=== PATIENT | male | born 1990 | race Caucasian/White ===

== ENCOUNTER 2021-06-15 18:06 | Emergency (ER) | payer BC ==
[2021-06-15] MEDS ORDERED: Ondansetron 4 MG/2 ML SDV IVPUSH ONE (18:43)
[2021-06-15] MEDS ORDERED: HYDROmorphone 0.5 MG/0.5 ML Syringe IVPUSH ONE (18:44)
[2021-06-15] MEDS ORDERED: Dextrose 5%-Lactated Ringers 1,000 ML IV SCH (18:45)
[2021-06-15] MEDS ORDERED: Ketorolac 30 MG/ML SDV IVPUSH SCH (18:45)
--- NOTE | 2021-06-15 18:53 | EDM.PDOC ---
ED HPI GENERAL MEDICAL PROBLEM - General Chief Complaint: Exposure to Heat or Cold Stated Complaint: [facility] Time Seen by Provider: 06/15/21 18:42 Source of Information: Reports: Patient History Limitations: Reports: No Limitations - History of Present Illness INITIAL COMMENTS - FREE TEXT/NARRATIVE: 30-year-old male presents to the ED per [facility] ambulance from [place]. Patient was a participant in the marathon today. Ambient temperature is 86 to 90 degrees. He made 37 miles before his legs gave out. He states he has mild cramps in his calves. However he was unable to walk once he got off his bicycle. He estimates he has drank a gallon of fluids today which include some Gatorade. However he does not believe he has passed any urine sin ce 0630 hrs. this morning when he started the [place]. Paramedics administered 2 L of IV fluids in route to [place] from [employer]. He admits he is feeling better getting out of the sun and after receiving 2 L of fluid. Mild diffuse low back discomfort without severe cramping. Unable to dorsiflex his feet at this time due to cramping in his calves. No nausea or vomiting. Initially did have a mil d headache but this is now gone. Onset: Today, Gradual Onset Date: 06/15/21 Onset Time: 17:00 Duration: Hour(s):, Improving Location: Reports: Generalized Quality: Reports: Ache, Other Severity: Moderate (Cramping lower back in both calves.) Improves with: Reports: Rest Worsens with: Reports: Other Context: Reports: Other (Heat exhaustion from performing a bicycle [id number] [place] out in [place]. He made 37 miles). Denies: Activity (Find to walk or weight-bear), Exercise, Lifting, Sick Contact, Trauma Associated Symptoms: Reports: Headaches (Mild), Loss of Appetite, Malaise, Nausea/Vomiting, Weakness (Degrees lower extremities). 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) (Paramedics gave him 2 L of fluids intravenously in route to [place] from [employer]) - Related Data Allergies Allergy/AdvReac Type Severity Reaction Status Date / Time No Known Allergies Allergy Verified 06/15/21 18:09 Home Meds: Home Meds Cetirizine [ZyrTEC] 10 mg PO DAILY 06/15/21 [History] Past Medical History - Past Health History Medical/Surgical History: Denies Medical/Surgical History Social & Family History - Tobacco Use Tobacco Use Status *Q: Never Tobacco User Second Hand Smoke Exposure: No - Recreational Drug Use Recreational Drug Use: No - Living Situation & Occupation Occupation: Employed ED ROS GENERAL - Review of Systems Review Of Systems: See Below Constitutional: Reports: Malaise, Weakness, Fatigue, Diaphoresis, Decreased Appetite, Other (Has some shivers intermittently in the ED). Denies: Fever, Chills HEENT: Reports: Other (Mild nasal discharge from allergic rhinitis.) Respiratory: Reports: No Symptoms Cardiovascular: Reports: No Symptoms Endocrine: Reports: Fatigue GI/Abdominal: Reports: Decreased Appetite, Nausea. Denies: Diarrhea : Reports: Other (He does not think he has voided since 0630 hrs. this morning.) Musculoskeletal: Reports: Back Pain (Diffuse low back discomfort without cramping.), Muscle Pain (Both calves), Other (Mild cramping in his calves at present. Mostly in his calves bilaterally.) Skin: Reports: No Symptoms Neurological: Reports: No Symptoms, Headache, Difficulty Walking (Unable to walk at present), Weakness. Denies: Confusion, Dizziness, Numbness, Pre-Existing Deficit, Seizure, Syncope, Tingling (Initially had a headache but it is gone now.), Tremors, Change in Speech Psychiatric: Reports: No Symptoms. Denies: Agitation, Anxiety, Cravings, Depression Hematologic/Lymphatic: Reports: No Symptoms Immunologic: Reports: No Symptoms ED EXAM, GENERAL - Physical Exam Exam: See Below Exam Limited By: No Limitations General Appearance: Alert, WD/WN, No Apparent Distress, Other (Temperature is 36.2 degrees. Heart rate 86 and sinus. Respiratory to 16 with O2 sats 100% room air. BP 12/10/1994) Eye Exam: Bilateral Eye: Normal Inspection (No blepharal pallor or scleral icterus.), PERRL Throat/Mouth: Normal Inspection (Tongue is moist.), Normal Lips, Normal Oropharynx, Other Head: Atraumatic, Normocephalic Neck: Normal Inspection, Supple, Non-Tender, Full Range of Motion. No: Carotid Bruit, Lymphadenopathy (L), Lymphadenopathy (R) Respiratory/Chest: No Respiratory Distress, Lungs Clear, Normal Breath Sounds, No Accessory Muscle Use Cardiovascular: Normal Peripheral Pulses, Regular Rate, Rhythm, No Edema, No Gallop, No Murmur, No Rub Peripheral Pulses: 3+: Carotid (L), Carotid (R), Posterior Tibial (L), Posterior Tibial (R), Dorsalis Pedis (L), Dorsalis Pedis (R) GI/Abdominal: Soft, Non-Tender, No Organomegaly, No Distention, Abnormal Bowel Sounds (Bowel sounds are present but are few and far between.), Other (Muscular abdominal wall. Scaphoid abdomen). No: Guarding, Rigid, Rebound, Tender (Male) Exam: No Hernia Back Exam: Normal Inspection, Decreased Range of Motion, Paraspinal Tenderness (Mild bilateral paraspinal muscle tenderness lumbar and lower thoracic spine). No: CVA Tenderness (L) (Needed help to sit up in the bed due to pain in his lower back.), CVA Tenderness (R), Muscle Spasm Extremities: Normal Inspection, Other (Feet are covered in mud. Unable to dorsiflex his feet due to pain in his calves. Pain on squeeze test of both calves. Quadriceps and hamstrings appear to be normal). No: Normal Range of Motion, Pedal Edema Neurological: Alert, Oriented, CN II-XII Intact, Normal Cognition Psychiatric: Normal Affect, Normal Mood Skin Exam: Warm, Dry, Intact, Normal Color, No Rash #1 Interpretation EKG Date: 06/15/21 Time: 19:09 Rhythm: NSR Rate (Beats/Min): 80 [place]: Normal P-Wave: Present QRS: Other (RSR prime waves in V1 and V2 consider normal variants.) ST-T: Other (Diffuse early repolarization pattern versus mild ST segment elevation in both the limb and precordial leads which would give 1 consideration of a possible underlying pericarditis. Patient has no chest pain to correlate with this.) QT: Normal EKG Interpretation Comments: Borderline ECG Course - Vital Signs Last Recorded V/S: Last Vital Signs Temp 36.2 C 06/15/21 18:07 Pulse 82 06/15/21 21:00 Resp 18 06/15/21 21:00 BP 115/67 06/15/21 21:00 Pulse Ox 98 06/15/21 21:00 - Orders/Labs/Meds Labs: Laboratory Tests 06/15/21 06/15/21 06/15/21 Range/Units 18:30 18:55 18:55 WBC 13.57 H (4.23-9.07) K/mm3 RBC 5.06 (4.63-6.08) M/mm3 Hgb 14.8 (13.7-17.5) gm/dl Hct 42.8 (40.1-51.0) % MCV 84.6 (79.0-92.2) fl MCH 29.2 (25.7-32.2) pg MCHC 34.6 (32.2-35.5) g/dl RDW Std Deviation 38.0 (35.1-43.9) fL Plt Count 218 (163-337) K/mm3 MPV 11.0 (9.4-12.3) fl Neut % (Auto) 85.1 H (34.0-67.9) % Lymph % (Auto) 5.8 L (21.8-53.1) % [place] % (Auto) 8.7 (5.3-12.2) % Eos % (Auto) 0.1 L (0.8-7.0) Baso % (Auto) 0.1 (0.1-1.2) % Neut # (Auto) 11.54 H (1.78-5.38) K/mm3 Lymph # (Auto) 0.79 L (1.32-3.57) K/mm3 [place] # (Auto) 1.18 H (0.30-0.82) K/mm3 Eos # (Auto) 0.01 L (0.04-0.54) K/mm3 Baso # (Auto) 0.02 (0.01-0.08) K/mm3 Manual Slide Review Abnormal smear Sodium 138 (136-145) mEq/L Potassium 4.8 (3.5-5.1) mEq/L Chloride 102 (98-107) mEq/L Carbon Dioxide 26 (21-32) mEq/L Anion Gap 14.8 (5-15) BUN 31 H (7-18) mg/dL Creatinine 2.0 H (0.7-1.3) mg/dL Est Cr Clr Drug Dosing 52.45 mL/min Estimated GFR (MDRD) 40 (>60) mL/min BUN/Creatinine Ratio 15.5 (14-18) Glucose 129 H (70-99) mg/dL Lactic Acid 2.1 H* (0.4-2.0) mmol/L Calcium 8.8 (8.5-10.1) mg/dL Magnesium (1.8-2.4) mg/dL Total Bilirubin 0.8 (0.2-1.0) mg/dL AST 75 H (15-37) U/L ALT 51 (16-63) U/L Alkaline Phosphatase 53 (46-116) U/L Creatine Kinase (39-308) U/L Troponin I (0.00-0.056) ng/mL C-Reactive Protein (<1.0) mg/dL Total Protein 7.4 (6.4-8.2) g/dl Albumin 4.3 (3.4-5.0) g/dl Globulin 3.1 gm/dL Albumin/Globulin Ratio 1.4 (1-2) Urine Color (Yellow) Urine Appearance (Clear) Urine pH (5.0-8.0) Ur Specific [place] (1.005-1.030) Urine Protein (Negative) Urine Glucose (UA) (Negative) Urine Ketones (Negative) Urine Occult Blood (Negative) Urine Nitrite (Negative) Urine Bilirubin (Negative) Urine Urobilinogen (0.2-1.0) Ur Leukocyte Esterase (Negative) U Hyaline Cast (Auto) (0-5) /lpf Urine RBC (0-5) /hpf Urine WBC (0-5) /hpf Ur Squamous Epith Cells (0-5) /hpf Calcium Oxalate Crystal (NONE) Urine Bacteria (FEW) /hpf Urine Mucus (FEW) /hpf 06/15/21 06/15/21 Range/Units 18:55 20:15 WBC (4.23-9.07) K/mm3 RBC (4.63-6.08) M/mm3 Hgb (13.7-17.5) gm/dl Hct (40.1-51.0) % MCV (79.0-92.2) fl MCH (25.7-32.2) pg MCHC (32.2-35.5) g/dl RDW Std Deviation (35.1-43.9) fL Plt Count (163-337) K/mm3 MPV (9.4-12.3) fl Neut % (Auto) (34.0-67.9) % Lymph % (Auto) (21.8-53.1) % [place] % (Auto) (5.3-12.2) % Eos % (Auto) (0.8-7.0) Baso % (Auto) (0.1-1.2) % Neut # (Auto) (1.78-5.38) K/mm3 Lymph # (Auto) (1.32-3.57) K/mm3 [place] # (Auto) (0.30-0.82) K/mm3 Eos # (Auto) (0.04-0.54) K/mm3 Baso # (Auto) (0.01-0.08) K/mm3 Manual Slide Review Sodium (136-145) mEq/L Potassium (3.5-5.1) mEq/L Chloride (98-107) mEq/L Carbon Dioxide (21-32) mEq/L Anion Gap (5-15) BUN (7-18) mg/dL Creatinine (0.7-1.3) mg/dL Est Cr Clr Drug Dosing mL/min Estimated GFR (MDRD) (>60) mL/min BUN/Creatinine Ratio (14-18) Glucose (70-99) mg/dL Lactic Acid (0.4-2.0) mmol/L Calcium (8.5-10.1) mg/dL Magnesium 2.0 (1.8-2.4) mg/dL Total Bilirubin (0.2-1.0) mg/dL AST (15-37) U/L ALT (16-63) U/L Alkaline Phosphatase (46-116) U/L Creatine Kinase 2713 H (39-308) U/L Troponin I 0.018 (0.00-0.056) ng/mL C-Reactive Protein <0.2 (<1.0) mg/dL Total Protein (6.4-8.2) g/dl Albumin (3.4-5.0) g/dl Globulin gm/dL Albumin/Globulin Ratio (1-2) Urine Color Yellow (Yellow) Urine Appearance Clear (Clear) Urine pH 6.0 (5.0-8.0) Ur Specific [place] 1.025 (1.005-1.030) Urine Protein Negative (Negative) Urine Glucose (UA) Trace H (Negative) Urine Ketones Trace H (Negative) Urine Occult Blood Negative (Negative) Urine Nitrite Negative (Negative) Urine Bilirubin Negative (Negative) Urine Urobilinogen 0.2 (0.2-1.0) Ur Leukocyte Esterase Negative (Negative) U Hyaline Cast (Auto) 50-75 H (0-5) /lpf Urine RBC 0-5 (0-5) /hpf Urine WBC 0-5 (0-5) /hpf Ur Squamous Epith Cells Not seen (0-5) /hpf Calcium Oxalate Crystal Few H (NONE) Urine Bacteria Few (FEW) /hpf Urine Mucus Moderate H (FEW) /hpf Meds: Medications Discontinued Medications Generic Name Dose Route Start Last Admin Trade Name Freq PRN Reason Stop Dose Admin Hydromorphone HCl 0.5 mg 06/15/21 18:44 06/15/21 18:59 Hydromorphone 0.5 Mg/0.5 Ml Syringe IVPUSH 06/15/21 18:45 0.5 mg ONETIME ONE Administration Dextrose/Lactated Ringer's 1,000 mls @ 999 mls/hr 06/15/21 18:45 06/15/21 19:00 Dextrose 5%-Lactated Ringers IV 999 mls/hr ASDIRECTED MIREYA Administration Lactated Ringer's 1,000 mls @ 999 mls/hr 06/15/21 20:15 06/15/21 20:05 Ringers, Lactated IV 999 mls/hr ASDIRECTED MIREYA Administration Ketorolac Tromethamine 30 mg 06/15/21 18:45 06/15/21 18:59 Ketorolac 30 Mg/Ml Sdv IVPUSH 30 mg ONETIME MIREYA Administration Ondansetron HCl 4 mg 06/15/21 18:43 06/15/21 19:00 Ondansetron 4 Mg/2 Ml Sdv IVPUSH 06/15/21 18:44 4 mg ONETIME ONE Administration - Radiology Interpretation Free Text/Narrative:: 30-year-old male presents to the ED for evaluation of heat exhaustion after marathon race out in [place] on the [facility] trail today. Ambient temperature is 86 to 90 degrees outside. He started at 0630 hrs. this morning. States he made mild marker 37. He indicates that he has not voided since 0630 hrs. this morning. He estimates he did drink a gallon of fluid while on the [place]. Once he got to about mile 37 before he could no longer walk due to weakness and cramping in his lower extremities. He was therefore brought to the emergency room per [place] ambulance. He did receive 2 L of IV fluids in route to [place]. He states he is feeling better at this time. Initially had a headache which is resolved. No nausea at this time. Mild diffuse low back discomfort and cramping mildly in his calves. He is unable to dorsiflex either foot due to pain in his calf at present. Plan routine labs including a total CPK renal function and a magnesium level. ECG and troponin value as well. IV will be D5 LR at open. Given Toradol 30 mg IV and Dilaudid 0.5 mg IV for pain relief with Zofran 4 mg IV. - Re-Assessments/Exams Free Text/Narrative Re-Assessment/Exam: 06/15/21 19:34 White count is mildly elevated at 13.57 with a left shift of 85.1% neutrophils. Hemoglobin is 14.8 with hematocrit of 42.8. Platelet count 218,000. Lactic acid minute mildly elevated at 2.1. 06/15/21 20:03 Temperature shows a sodium of 138 and potassium of 4.8. Chloride is 1 2 with a bicarb of 26. Anion gap is 14.8. BUN is elevated at 31 with a creatinine of 2.0 and a GFR of only 40. Glucose is 129. Lactic acid was 2.1 as previously mentioned. Calcium was 8.8 with a magnesium of 2.0 bilirubin is 0.8 AST mildly elevated at 75 ALT normal at 51 alkaline phosphatase is 53. Total CPK is elevated at 2713. Troponin I is 0.018. C-reactive protein is less than 0.2 total protein 7.4 with an albumin fraction of 4.3. Patient has not yet voided. He has completed 1 L of fluids in the ED. A second liter of IV fluids will be placed now. 06/15/21 20:18 rhabdomyolysis is unlikely to occur and last CPK levels are higher than 15-20,000. Patient was just able to get up to the bathroom now and walk with some weakness and minimal pain in his calves. He will complete a further liter of Ringer's lactate and then be discharged home. Departure - Departure Time of Disposition: 21:10 Disposition: Home, Self-Care 01 Condition: Fair Clinical Impression: Elevated CPK, Dehydration after exertion Heat exhaustion Qualifiers: Encounter type: initial encounter Qualified Code(s): T67.5XXA - Heat exhaustion, unspecified, initial encounter - Discharge Information *PRESCRIPTION DRUG MONITORING PROGRAM REVIEWED*: Not Applicable *COPY OF PRESCRIPTION DRUG MONITORING REPORT IN PATIENT STEVEN: Not Applicable Instructions: Heat Exhaustion, Heat Illness-SportsMed Referrals: PCP,Not In Area [Primary Care Provider] - Forms: ED Department Discharge Additional Instructions: Evaluation in the emergency room today in regards to heat exhaustion that occurred from running a marathon today out in [place] with ambient temperatures o f 86 to 90 degrees. This exertion has resulted in elevation of your CPK known as creatinine phosphokinase levels to 2713 and mild increase in kidney values with a creatinine of 2.0. Normal creatinine is 1.0 or less .Also minimal elevation of blood urea nitrogen at 31 with normal being 20. GFR which stands for glomerular filtration rate is usually greater than 60 in someone your age and yours today was 40 indicating the kidneys were suffering from dehydration due to excessive fluid losses from sweating. You were hydrated with 4 L of crystalloid mostly Ringer's lactate in the emergency room to rehydrate your body and decrease the levels of CPK. CPK values are not high enough at this time to cause any underlying kidney damage. Kidney damage usually occurs if CPK levels rise greater than 15,000. It is still important for you to drink plenty of fluids tonight and tomorrow to provide rehydration and to avoid alcohol for the next 3 days as it to can help elevate CPK levels. Sepsis Event Note (ED) - Evaluation Sepsis Screening Result: No Definite Risk
[2021-06-15] MEDS ORDERED: Lactated Ringers 1,000 ML IV SCH (20:15)
== END 2021-06-15 21:25 | disposition home or self-care (01) ==
LOC: JD.ED 18:06
DX: T67.5XXA Heat exhaustion, unspecified, initial encounter (principal); E86.0 Dehydration; R74.8 Abnormal levels of other serum enzymes; D72.829 Elevated white blood cell count, unspecified; M54.5 Low back pain
CPT/HCPCS: 36415; 80053; 81001; 82550; 83605; 83735; 84484; 85025; 86140; 93005; 93010; 96374; 96375; 99284; 99284-25; J1170; J1885; J2405; J7120; J7121